=== PATIENT | female | born 1975 | race African-American/Black ===

== ENCOUNTER 2017-03-23 08:52 | Observation (INO) | payer BC, OTHER ==
--- NOTE | 2017-03-23 09:43 | PDOC ---
History of Present Illness - General Chief Complaint: Revisit, Lab Variance Stated Complaint: LAB VARIANCE (PCP SENT)low H/H Time Seen by Provider: 03/23/17 09:12 History Source: Patient Exam Limitations: No Limitations - History of Present Illness Initial Comments: 03/23/17 10:27 MY CHIEF COMPLAINT: SENT BY HER LAST REPAIRER HELPER DUE TO LOW H&H ' HISTORY OF PRESENT ILLNESS: PT. IS A 41 Y/O FEMALE WITH NO SIGNIFICANT MEDICAL HISTORY HERE TODAY DUE TO LOW H& H FROM 03/22/17. PT SAW HER PCP YESTERDAY DUE TO HAVING HEADACHES DAILY FOR APPROX ONE MONTH, FEELING MORE TIRED THAN USUAL AND BEING VERY THIRSTY. PT. DENIES ANY SOB, DIZZINESS OR PALPITATIONS. PT. GETS HERE MENSES MONTHLY LASTS 2 DAYS WITH HEAVY BLEEDING, CLOTS LAST HAD 03/05/17. PT. DENIES ANY ABDOMINAL PAIN. PT.'s LAST REPAIRER HELPER IS DR. ANSLEY MONTIEL FROM [facility]. SHE DENIES ANY URINARY SYMPTOMS. 03/23/17 10:45 03/23/17 10:46 ALLERGIES: NKDA, HAY FEVER MEDICAL HX: NO SIGNIFICANT HISTORY SURGICAL HX.: 03/23/17 12:54 Timing/Duration: constant (generalized fatique), intermittent Severity: moderate Associated Symptoms: reports: headaches, other (generalized fatique, increased thirst) Past History - Past Medical History Allergies/Adverse Reactions: Allergies Allergy/AdvReac Type Severity Reaction Status Date / Time No Known Drug Allergies Allergy Verified 03/23/17 16:58 hay fever Allergy Uncoded 03/23/17 16:56 Home Medications: Ambulatory Orders NK [No Known Home Medication] 03/23/17 Other medical history: denies - Reproductive History LMP Normal: Yes (03/05/17) Is Patient Now?: No - Suicide/Smoking/Psychosocial Hx Smoking History: Never smoked Information on smoking cessation initiated: No Hx Alcohol Use: No Drug/Substance Use Hx: No Substance Use Type: None Review of Systems - Review of Systems Able to Perform ROS?: Yes Constitutional: Yes: Symptoms Reported, Other (generalized fatique, increased thirst) HEENTM: No: Symptoms Reported Respiratory: No: Symptoms reported Cardiac (ROS): No: Symptoms Reported ABD/GI: No: Symptoms Reported : No: Symptoms Reported Musculoskeletal: No: Symptoms Reported *Physical Exam - Vital Signs Last Vital Signs Temp Pulse Resp BP Pulse Ox 98.2 F 99 H 17 137/81 100 03/23/17 08:55 03/23/17 08:55 03/23/17 08:55 03/23/17 08:55 03/23/17 08:55 - Physical Exam General Appearance: Yes: Appropriately Dressed HEENT: positive: EOMI, TREVOR, Normal ENT Inspection Neck: positive: Normal Thyroid. negative: Tender, Lymphadenopathy (R), Lymphadenopathy (L) Respiratory/Chest: positive: Lungs Clear, Normal Breath Sounds. negative: Chest Tender, Respiratory Distress Cardiovascular: positive: Regular Rhythm, Regular Rate, S1, S2 Gastrointestinal/Abdominal: positive: Normal Bowel Sounds, Soft, Other (uterine edge palpated lower abdomen ). negative: Increased Bowel Sounds, Hepatomegaly, Spleenomegaly Integumentary: positive: Normal Color Neurologic: positive: Alert, Normal Response, Responsive ED Treatment Course - LABORATORY CBC & Chemistry Diagram: 03/24/17 06:30 03/24/17 06:30 Medical Decision Making - Medical Decision Making 03/23/17 10:42 PT. IS A 41 Y/O FEMALE WITH NO SIGNIFICANT MEDICAL HISTORY HERE TODAY DUE TO LOW H& H FROM 03/22/17. PT SAW HER PCP YESTERDAY DUE TO HAVING HEADACHES DAILY FOR APPROX ONE MONTH, FEELING MORE TIRED THAN USUAL AND BEING VERY THIRSTY. PT. DENIES ANY SOB, DIZZINESS OR PALPITATIONS. PT. GETS HERE MENSES MONTHLY LASTS 2 DAYS WITH HEAVY BLEEDING, CLOTS LAST HAD 03/05/17. PT. DENIES ANY ABDOMINAL PAIN. PT.'s LAST REPAIRER HELPER IS DR. ANSLEY MONTIEL FROM [facility]. SHE DENIES ANY URINARY SYMPTOMS. R/O FIBROIDS R/O IRON DEFICIENCY ANEMIA PLAN: CBC WITH DIFF CMP TYPE AND CROSS MATCH FERRTIN TIBC U/A URINE HCG NEGATIVE ULTRASOUND TRANSVAGINAL significantly enlarged uterus with suggestion of a large fibroid measuring 11 cm. Nonvisualization of the endometrial stripe. Correlate with MRI of pelvis is recommended for further evaluation. Normal- appearing right ovary with normal vascular flow. Left ovary was not visualized per Dr. Mcneill ULTRASOUND PELVIC/BLADDER same as above 03/23/17 10:43 Laboratory Tests 03/23/17 03/23/17 03/23/17 09:40 09:40 09:40 WBC 5.8 RBC 4.05 Hgb 6.3 L* Hct 22.5 L MCV 55.5 L MCH 15.6 L MCHC 28.1 L RDW 20.1 H Plt Count 467 H MPV 8.2 Neutrophils % 46.1 Lymphocytes % 40.9 H Monocytes % 5.9 Eosinophils % 6.6 H Basophils % 0.5 PT with INR 11.90 H INR 1.08 Sodium 137 Potassium 3.9 Chloride 105 Carbon Dioxide 24 Anion Gap 8 BUN 9 Creatinine 0.5 L Creat Clearance w eGFR > 60 Random Glucose 91 Calcium 9.0 Ferritin Pending Total Bilirubin 0.6 AST 14 L ALT 20 Alkaline Phosphatase 84 Total Protein 7.6 Albumin 3.8 Urine Color Urine Appearance Urine pH Ur Specific [place] Urine Protein Urine Glucose (UA) Urine Ketones Urine Blood Urine Nitrite Urine Bilirubin Urine Urobilinogen Urine HCG, Qual 03/23/17 03/23/17 09:40 09:40 WBC RBC Hgb Hct MCV MCH MCHC RDW Plt Count MPV Neutrophils % Lymphocytes % Monocytes % Eosinophils % Basophils % PT with INR INR Sodium Potassium Chloride Carbon Dioxide Anion Gap BUN Creatinine Creat Clearance w eGFR Random Glucose Calcium Ferritin Total Bilirubin AST ALT Alkaline Phosphatase Total Protein Albumin Urine Color Yellow Urine Appearance Slcloudy Urine pH 5.0 Ur Specific [place] Pending Urine Protein Negative Urine Glucose (UA) Negative Urine Ketones Negative Urine Blood Negative Urine Nitrite Negative Urine Bilirubin Negative Urine Urobilinogen Negative Urine HCG, Qual Pending 03/23/17 10:45 Laboratory Tests 03/23/17 09:40 Ferritin 3.196 L pt to be admitted to med/surg via hospitalist accepted by Dr. Kenya Her ob/gyn consult needed 2 units of packed cells 03/23/17 11:31 03/23/17 12:28 03/23/17 12:54 03/23/17 18:19 03/24/17 11:46 *DC/Admit/Observation/Transfer Diagnosis at time of Disposition: Laboratory test result abnormal - Discharge Dispostion Condition at time of disposition: Stable Admit: Yes - Referrals
[2017-03-23 09:52] LABS: BASOPHIL 0.5 % (0-2.0); EOSINOPHIL 6.6 % (0-4.5); MCHC 28.1 g/dl (32.0-36.0); MEAN CELL VOLUME 55.5 fl (80-96); MEAN PLT VOLUME 8.2 fl (7.5-11.1); NEUTROPHILS 46.1 % (42.8-82.8); PLATELET COUNT 467 K/MM3 (134-434); RDW 20.1 % (11.6-15.6); WHITE BLOOD COUNT 5.8 K/mm3 (4.0-10.0)
[2017-03-23 09:54] LABS: MCH 15.6 pg (25.7-33.7); URINE APPEARANCE SLCLOUDY; URINE BILIRUBIN NEGATIVE (NEGATIVE); URINE BLOOD NEGATIVE (NEGATIVE); URINE COLOR YELLOW; URINE GLUCOSE (UA) NEGATIVE (NEGATIVE); URINE KETONE NEGATIVE (NEGATIVE); URINE LEUK ESTERASE NEGATIVE (NEGATIVE); URINE NITRITE NEGATIVE (NEGATIVE); URINE PROTEIN NEGATIVE (NEGATIVE); URINE UROBILINOGEN NEGATIVE mg/dL (0.2-1.0)
[2017-03-23 10:11] LABS: INR 1.08 (0.82-1.09); PROTHROMBIN TIME (PATIENT) 11.9 SEC (9.98-11.88)
[2017-03-23 10:14] LABS: ALBUMIN 3.8 g/dl (3.4-5.0); ANION GAP 8 (8-16); BILIRUBIN,TOTAL 0.6 mg/dL (0.2-1.0); CO2 24 mmol/L (21-32); CREATININE 0.5 mg/dL (0.55-1.02); GLUCOSE,RANDOM 91 mg/dL (74-106); SGOT/AST 14 U/L (15-37); SGPT/ALT 20 U/L (12-78); TOT PROT 7.6 g/dl (6.4-8.2)
[2017-03-23 10:15] LABS: ALK PHOS 84 U/L (45-117)
[2017-03-23 10:51] LABS: FERRITIN 3.196 ng/ml (6.9-282.5)
[2017-03-23 13:07] LABS: ANISOCYTOSIS 2+; HYPOCHROMIA 4+; MICROCYTOSIS 4+; POLYCHROMASIA 1+
[2017-03-23 13:08] LABS: MACROCYTOSIS FEW; OVALOCYTE 1+
--- NOTE | 2017-03-23 13:24 | HP ---
CHIEF COMPLAINT: Sent over by primary due to low H/H PCP: Dr Campos Vital [facility] HISTORY OF PRESENT ILLNESS: This is a 41 year old female without past medical history, who was sent to the ED by her PCP due to low hemoglobin. Patient states that she does not see her primary regularly, was feeling weak, lightheaded, nauseas, with headaches January -February, which provoked her to see her primary and get blood work. PCP called her this morning about the results, hemoglobin 6.2. and sent her to ER. ER hemoglobin was 6.3. Patient denies current symptoms except intermittent headaches. She denies lightheadedness, weakness, blurry vision, N,V, abdominal pain, melena, changes in bowel or urinary symptoms. Patient states she only has vaginal bleeding with periods. LMP was March 02. Her periods are heavy last 5-7 days, usually goes thru one whole pack of pads her second day. Patient denies personal and family history of anemia, cancer, bleeding disorders. ER course was notable for: (1)Hemoglobin 6.3 (2)ULTRASOUND TRANSVAGINAL :significantly enlarged uterus with suggestion of a large fibroid measuring 11 cm. 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 She has two children, one boy and one girl. She has one sexual male partner. Smoking:no Alcohol: social Drugs: no Family History: Allergies hay fever Allergy (Uncoded 03/23/17 08:57) HOME MEDICATIONS: Home Medications Medication Instructions Recorded NK [No Known Home Medication] 03/23/17 REVIEW OF SYSTEMS CONSTITUTIONAL: Absent: fever, chills, diaphoresis, generalized weakness, malaise, loss of appetite, weight change HEENT: Positive: headache Absent: rhinorrhea, nasal congestion, throat pain, throat swelling, difficulty swallowing, mouth swelling, ear pain, eye pain, visual changes CARDIOVASCULAR: Absent: chest pain, syncope, palpitations, irregular heart rate, lightheadedness , peripheral edema RESPIRATORY: Absent: cough, shortness of breath, dyspnea with exertion, orthopnea, wheezing, stridor, hemoptysis GASTROINTESTINAL: Absent: abdominal pain, abdominal distension, nausea, vomiting, diarrhea, constipation, melena, hematochezia GENITOURINARY: Absent: dysuria, frequency, urgency, hesitancy, hematuria, flank pain, genital pain MUSCULOSKELETAL: Absent: myalgia, arthralgia, joint swelling, back pain, neck pain SKIN: Absent: rash, itching, pallor HEMATOLOGIC/IMMUNOLOGIC: Absent: easy bleeding, easy bruising, lymphadenopathy, frequent infections ENDOCRINE: Absent: unexplained weight gain, unexplained weight loss, heat intolerance, cold intolerance NEUROLOGIC: Absent: headache, focal weakness or paresthesias, dizziness, unsteady gait, seizure, mental status changes, bladder or bowel incontinence PSYCHIATRIC: Absent: anxiety, depression, suicidal or homicidal ideation, hallucinations. PHYSICAL EXAMINATION Vital Signs - 24 hr 03/23/17 12:58 Temperature 98.3 F Pulse Rate [ 79 Left Radial] Respiratory 20 Rate Blood Pressure 135/80 [Left Arm] O2 Sat by Pulse 98 Oximetry (%) GENERAL: Awake, alert, and fully oriented, in no acute distress. HEAD: Normal with no signs of trauma. EYES: Pupils equal, round and reactive to light, extraocular movements intact, sclera anicteric, conjunctiva pale. No lid lag. EARS, NOSE, THROAT: Ears normal, nares patent, oropharynx clear without exudates. Moist mucous membranes. NECK: Normal range of motion, supple without lymphadenopathy, JVD, or masses. LUNGS: decreased Breath sounds equal, clear to auscultation bilaterally. No wheezes, and no crackles. No accessory muscle use. HEART: tachycardia and reg rhythm, normal S1 and S2 without murmur, rub or gallop. ABDOMEN: Soft, nontender, not distended, normoactive bowel sounds, no guarding, no rebound, no masses. No hepatomegaly or splenomegaly. pelvic area palpable uterus MUSCULOSKELETAL: Normal range of motion at all joints. No bony deformities or tenderness. No CVA tenderness. UPPER EXTREMITIES: 2+ pulses, warm, well-perfused. No cyanosis. No clubbing. No peripheral edema. LOWER EXTREMITIES: 2+ pulses, warm, well-perfused. No calf tenderness. No peripheral edema. NEUROLOGICAL: Cranial nerves II-XII intact. Normal speech. Normal gait. PSYCHIATRIC: Cooperative. Good eye contact. Appropriate mood and affect. SKIN: Warm, dry, normal turgor, no rashes or lesions noted, normal capillary refill. ULTRASOUND TRANSVAGINAL significantly enlarged uterus with suggestion of a large fibroid measuring 11 cm. Nonvisualization of the endometrial stripe. Correlate with MRI of pelvis is recommended for further evaluation. Normal- appearing right ovary with normal vascular flow. Left ovary was not visualized per Dr. Mcneill ULTRASOUND PELVIC/BLADDER same as above ASSESSMENT/PLAN: 41 year old female without current medical history, found to be severely anemic , admitted for blood transfusion. #microcytic anemia from iron def anemia most likely secondary to large fibroid: -type n screen -transfuse 2 U PRBC -cbc after transfusion to asses response -iron studies -iron supplementation -engineering programmer consult #headache most likely secondary to anemia: -neuro exam wnl -migraine not likely due to current symptoms FEN: Fluids: po Electrolytes: wnl Diet: regular VTE prophylaxis: scds Admit to obs for transfusion Problem List - Problem (1) Iron deficiency anemia Code(s): D50.9 - IRON DEFICIENCY ANEMIA, UNSPECIFIED Visit type - Emergency Visit Emergency Visit: Yes ED Registration Date: 03/23/17 Care time: The patient presented to the Emergency Department on the above date and was hospitalized for further evaluation of their emergent condition. - New Patient This patient is new to me today: Yes Date on this admission: 03/23/17 - Critical Care Critical Care patient: No
[2017-03-23 14:03] VITALS: BMI 33.3
--- NOTE | 2017-03-23 15:13 | HP ---
CHIEF COMPLAINT: sent by PCP PCP: Nini Gasca HISTORY OF PRESENT ILLNESS: Patient is a 41 yo F with no significant past medical history, was sent by her PCP because of abnormal blood tests that revealed anemia. Patient says lately she has been feeling tired, fatigued, decreased appetite and with no energy that also started around january. She also complained of everyday headaches that started in January and started getting better in February. Denies photophobia and blurry vision. She also recalls 1 day of severe nausea and dizziness with ice cravings. She also noticed paleness of her face with friends also commenting. Her Last menstrual period was march 03. Her periods are usually heavy, and last 4-5 days with noticeable blood clots. She denies bleeding and spotting in between periods. Patient denies, visual changes, LOC, blood in stool, edema, rash, cough, sob, diarrhea, constipation , weight loss and chest pain. ER course was notable for: (1) TV and bladder U/S - significantly enlarged uterus with suggestion of large fibroid. (2) HGB: 6.3, HCT: 22.5 Recent Travel: n/a PAST MEDICAL HISTORY: n/a PAST SURGICAL HISTORY: n/a Social History: Smoking: denies Alcohol: denies Drugs: denies Family History: Allergies hay fever Allergy (Uncoded 03/23/17 08:57) HOME MEDICATIONS: Home Medications Medication Instructions Recorded NK [No Known Home Medication] 03/23/17 REVIEW OF SYSTEMS CONSTITUTIONAL: loss of appetite Absent: fever, chills, diaphoresis, generalized weakness, malaise, weight change HEENT: Absent: rhinorrhea, nasal congestion, throat pain, throat swelling, difficulty swallowing, mouth swelling, ear pain, eye pain, visual changes CARDIOVASCULAR: light headedness Absent: chest pain, syncope, palpitations, irregular heart rate, peripheral edema RESPIRATORY: Absent: cough, shortness of breath, dyspnea with exertion, orthopnea, wheezing, stridor, hemoptysis GASTROINTESTINAL: nausea Absent: abdominal pain, abdominal distension, vomiting, diarrhea, constipation, melena, hematochezia GENITOURINARY: Absent: dysuria, frequency, urgency, hesitancy, hematuria, flank pain, genital pain MUSCULOSKELETAL: Absent: myalgia, arthralgia, joint swelling, back pain, neck pain SKIN: Absent: rash, itching, pallor HEMATOLOGIC/IMMUNOLOGIC: Absent: easy bleeding, easy bruising, lymphadenopathy, frequent infections ENDOCRINE: Absent: unexplained weight gain, unexplained weight loss, heat intolerance, cold intolerance NEUROLOGIC: Absent: headache, focal weakness or paresthesias, dizziness, unsteady gait, seizure, mental status changes, bladder or bowel incontinence PSYCHIATRIC: Absent: anxiety, depression, suicidal or homicidal ideation, hallucinations. PHYSICAL EXAMINATION Vital Signs - 24 hr 03/23/17 12:58 Temperature 98.3 F Pulse Rate [ 79 Left Radial] Respiratory 20 Rate Blood Pressure 135/80 [Left Arm] O2 Sat by Pulse 98 Oximetry (%) GENERAL: Pale, Awake, alert, and fully oriented, in no acute distress. HEAD: Normal with no signs of trauma. EYES: Pupils equal, round and reactive to light, extraocular movements intact, sclera anicteric, conjunctiva clear. No lid lag. EARS, NOSE, THROAT: oropharynx clear without exudates. Moist mucous membranes. NECK: Normal range of motion, supple without lymphadenopathy, JVD, or masses. LUNGS: Breath sounds equal, clear to auscultation bilaterally. No wheezes, and no crackles. No accessory muscle use. HEART: Regular rhythm, tachy, normal S1 and S2 without murmur, rub or gallop. ABDOMEN: Soft, LLQ tenderness, not distended, normoactive bowel sounds, no guarding, no rebound, no masses. MUSCULOSKELETAL: Normal range of motion at all joints. No bony deformities or tenderness. No CVA tenderness. UPPER EXTREMITIES: 2+ pulses, warm, well-perfused. No cyanosis. No clubbing. No peripheral edema. LOWER EXTREMITIES: 2+ pulses, warm, well-perfused. No calf tenderness. No peripheral edema. NEUROLOGICAL: Cranial nerves II-XII intact. Normal speech. Normal gait. PSYCHIATRIC: Cooperative. Good eye contact. Appropriate mood and affect. SKIN: Warm, dry, normal turgor, no rashes or lesions noted, normal capillary refill. Laboratory Results - last 24 hr 03/23/17 13:55 Blood Type B POSITIVE ASSESSMENT/PLAN: 41 y/o lady with no significant past medical history presented to the ED from PCP office for evaluation of anemia after abnormal lab work, and was found to have possible uterine fibroid. #Microcytic Anemia from iron def anemia -likely secondary to large fibroid -FU iron studies -Ferritin low (3) -stool softners -OBGYN consulted -repeat H&H in the am -Will fu #FEN: Fluids: PO Electrolytes: WNL Diet: regular -DVT PPX: SCD's dispo: admit to OBS Visit type - Emergency Visit Emergency Visit: Yes ED Registration Date: 03/23/17 Care time: The patient presented to the Emergency Department on the above date and was hospitalized for further evaluation of their emergent condition. - New Patient This patient is new to me today: Yes Date on this admission: 03/23/17 - Critical Care Critical Care patient: No
--- NOTE | 2017-03-23 15:14 | PN ---
Teaching Attending Note Name of Resident: Ailyn Redding ATTENDING PHYSICIAN STATEMENT I saw and evaluated the patient. I reviewed the resident's note and discussed the case with the resident. I agree with the resident's findings and plan as documented. SUBJECTIVE CC: referred by PCP for anemia HPI: 41 y/o lady with no Significant PMH, who presented from PCP office for evaluation of anemia. She reports heavy menses ( 4 days monthly, heavy bleeding on second day, 1 pack of pads on second day ) , no other h/o GI bleed. reports taking ASA daily for ROBERT . no NSAIDS use . reports almost constant ROBERT, mainly on L occipital area , but sometimes frontal for > 1 month.Denies any visual changes, aura, light sensitivity, weakness/numbness/ tingling. reports poor exertion tolerance. no CP on exertion . She was worked up fro menorrhagia few years back and was told she had "something on uterus", but never followed. Now she is ROBERT free. No bleeding. No CP or SOB. No dysuria . OBJECTIVE: NAD , AAOx3. HEENT: EOMI, round equal pupils, pale conjunctivae, MMM, pale MM , no JVD. CV: RRR, No MRG Lungs : CTAB ext : no edema or erythema Abd: soft, ND, obese. suprapubic fullness/mass felt , and also dullness to percussion. TTP in LLQ. Neuro :EOMI, round equal pupils, reactive to light . no facial droop. nl facial sensation . Uvula and tongue at mid line. Nl shoulder shrug. Strength 5/5 in upper and lower ext, proximally and distally . sensation to light touch NL. : done in the presence of RN. Nl hair distribution , no masses felt in vagina , bi-manual exam confirms abd mass which can be felt against the examiner fingers. could not feel ovaries. no pain with vaginal exam ASSESSMENT AND PLAN: 41 y/o lady with no Significant PMH, who presented from PCP office for evaluation of anemia, she was found to have possible uterine fibroid 1- Microcytic anemia : due to iron def ,from menorrhagia. iron studies pending but ferritin 3. - give 2 units of blood due to symptomatic anemia - start iron supp, BID then TID in 1 week - stool softners - DUST PULLER consult pending . possible continued w/u as outpt - repeat H&H in am Possible dc tomorrow if HB responds appropriately
[2017-03-23] MEDS: FERROUS SO4 325 MG TABLET (FP) PO SCH (21:29)
[2017-03-24 06:08] LABS: SERUM IRON 16 ug/dL (27-159); TOTAL IRON BINDING CAPACITY 494 ug/dL (250-450); UIBC 478 ug/dL (131-425)
[2017-03-24 08:11] LABS: BASOPHIL 0.8 % (0-2.0); MEAN CELL VOLUME 59.5 fl (80-96); MEAN PLT VOLUME 8.3 fl (7.5-11.1); NEUTROPHILS 49.6 % (42.8-82.8); PLATELET COUNT 395 K/MM3 (134-434); RDW 24.4 % (11.6-15.6); WHITE BLOOD COUNT 5.2 K/mm3 (4.0-10.0)
[2017-03-24 08:12] LABS: MCH 17.9 pg (25.7-33.7)
[2017-03-24 08:32] LABS: ANION GAP 6 (8-16); CALCIUM 8.8 mg/dL (8.5-10.1); CO2 25 mmol/L (21-32); CREATININE 0.5 mg/dL (0.55-1.02); GLUCOSE,RANDOM 79 mg/dL (74-106)
[2017-03-24] MEDS: FERROUS SO4 325 MG TABLET (FP) PO SCH (09:35)
[2017-03-24] MEDS ORDERED: IRON SUCROSE INJECTION 200 MG in SODIUM CHLORIDE 100 ML IVPB ONE (09:45)
[2017-03-24 11:24] VITALS: BP 142/87; PULSE 91; TEMP 97.8
--- NOTE | 2017-03-24 13:14 | DS ---
Physical Exam: SUBJECTIVE: Patient seen and examined. She feels well, denies dizziness, ROBERT, fever, chills. OBJECTIVE: Vital Signs Period Temp Pulse Resp BP Sys/Ashraf Pulse Ox Last 24 Hr 97.8 F-98.6 F 78-91 16-18 119-142/83-87 PE Neuro: alert, awake, cn 2-12intact Pulm: CTAB CV: s1 s2 rrr no mrg Abd: s +bs LLQ mild tenderness, LLQ fullness Ext: Warm, no le edema Laboratory Results - last 24 hr 03/24/17 03/24/17 06:30 06:30 WBC 5.2 RBC 4.70 Hgb 8.4 L D Hct 28.0 L D MCV 59.5 L MCH 17.9 L MCHC 30.0 L RDW 24.4 H D Plt Count 395 MPV 8.3 Neutrophils % 49.6 Lymphocytes % 37.7 Monocytes % 6.9 Eosinophils % 5.0 H Basophils % 0.8 Sodium 136 Potassium 4.3 Chloride 105 Carbon Dioxide 25 Anion Gap 6 L BUN 6 L D Creatinine 0.5 L Random Glucose 79 Calcium 8.8 HOSPITAL COURSE: Date of Admission:03/23/17 Date of Discharge: 03/24/17 Minutes to complete discharge: 37 Discharge Summary Reason For Visit: SEVERE ANEMIA Current Active Problems Iron deficiency anemia (Acute) Hospital Course: Initial Hospital Course: Briefly, this 41 year old lady with no Significant PMH, who presented from PCP office for evaluation of anemia. She reported heavy menses (4 days monthly, heavy bleeding on second day, 1 pack of pads on second day ) , no other h/o GI bleed, reports taking ASA daily for ROBERT, no NSAIDS use, reports almost constant ROBERT, mainly on L occipital area , but sometimes frontal for > 1 month from January - February. Subsequent Hospital Course/Progress Note/DC summary: 1. Iron deficiency anemia - Due to Menorrhagia/uterine fibroid - Transfused 2uprbc with appropriate rise - Transvaginal US with 11cm uterine fibroid - PT has BOXER OPERATOR appt scheduled 03/29/2017 @[id number] Snider at [facility] she does not wish to stay for inhouse eval - Iron studies noted - Venofer 200mg x1 - Home with ferrous sulfate TID, colace, vit C Dispo: - Home with above meds and follow up - PT aware and agrees to above plan Condition: Stable - Instructions Diet, Activity, Other Instructions: Please return to the ED for any new, persistent or worsening symptoms. Follow up with your PCP in 1 week Continue iron supplements, recheck levels with PCP in 6 weeks Follow up with BOXER OPERATOR for fibroid eval, keep appt scheduled appt (Dr. Snider 03/29 1:45pm) or follow with enclosed referral Referrals: Nini Gasca MD [Primary Care Provider] - Whitney Garrison MD [Staff Physician] - Disposition: HOME - Home Medications Comprehensive Discharge Medication List: Ambulatory Orders Ascorbic Acid/Ascorbate Sodium [Vit C-Marycruz Hips 500 mg Chew Tb] 500 mg PO DAILY #90 tab.chew 03/24/17 Docusate Sodium [Colace -] 100 mg PO BID #60 capsule 03/24/17 Ferrous Sulfate 325 mg PO TID #90 tablet 03/24/17 This patient is new to me today: Yes Date on this admission: 03/24/17 Emergency Visit: Yes ED Registration Date: 03/23/17 Care time: The patient presented to the Emergency Department on the above date and was hospitalized for further evaluation of their emergent condition. Critical Care patient: No - Discharge Referral Referred to [facility] No
[2017-03-25 06:06] LABS: SERUM IRON 241 ug/dL (27-159); TOTAL IRON BINDING CAPACITY 438 ug/dL (250-450); UIBC 197 ug/dL (131-425)
== END 2017-03-24 13:20 | disposition home or self-care (01) ==
LOC: JER 08:52 → INTOOBSV 12:14 → UNDOADMOB 12:14 → JERBED 12:14 → J7W 13:26 → JERBED 13:26 → J7W 14:25
PROVIDERS: ADMIT Internal Medicine; ATTEND Nurse Practitioner Acute Care
PROC: 30233N1 Transfusion of Nonautologous Red Blood Cells into Peripheral Vein, Percutaneous Approach (ICD-10-PCS; principal; 2017-03-23)
PROC: 3E033GC Introduction of Other Therapeutic Substance into Peripheral Vein, Percutaneous Approach (ICD-10-PCS; 2017-03-23)
DX: D50.8 Other iron deficiency anemias (principal); D25.9 Leiomyoma of uterus, unspecified
CPT/HCPCS: 36415; 36430; 76830-TC; 76856-TC; 80048; 80053; 81003; 82728; 83540; 83550; 84703; 85025; 85610; 86850; 86900; 86901; 86922; 99284-25; G0378; J1756; P9038; P9058